=== PATIENT | female | born 1930 | race Caucasian/White ===

== ENCOUNTER 2017-06-15 13:00 | Inpatient (IN) | payer BC ==
--- NOTE | 2017-06-15 13:15 | PDOC ---
History of Present Illness <Rox Carrera - Last Filed: 06/15/17 15:03> - General History Source: Family Exam Limitations: Dementia - History of Present Illness Initial Comments: 87 yo F history dementia, HTN brought in by son for cough. He states she has had the cough for past 2 days, nonproductive. She has had decreased PO intake, so he has been giving her pedialyte for hydration. Decreased solid food intake as well. No recent travel, no sick contacts. History limited, as patient has dementia and states that she does not know why she is in the ED today. <Chante Wang - Last Filed: 06/15/17 15:37> - General Chief Complaint: Respiratory Stated Complaint: COUGH Time Seen by Provider: 06/15/17 13:09 Past History <Rox Carrera - Last Filed: 06/15/17 15:03> - Past Medical History COPD: No Dementia: Yes GI Disorders: Yes (diverticulitis) HTN: Yes - Suicide/Smoking/Psychosocial Hx Smoking History: Never smoked Have you smoked in the past 12 months: No Hx Alcohol Use: No Drug/Substance Use Hx: No Substance Use Type: None <Chante Wang - Last Filed: 06/15/17 15:37> - Past Medical History Allergies/Adverse Reactions: Allergies Allergy/AdvReac Type Severity Reaction Status Date / Time No Known Allergies Allergy Verified 06/15/17 13:04 Home Medications: Ambulatory Orders Lisinopril/Hydrochlorothiazide [Lisinopril-Hctz 10-12.5 mg Tab] 1 each PO DAILY 03/27/15 Donepezil HCl [Aricept] 10 mg PO DAILY #30 tablet 04/02/15 Lisinopril 10 mg PO DAILY #30 tablet 04/02/15 Furosemide [Lasix -] 20 mg PO DAILY #30 tablet 04/03/15 Review of Systems - Review of Systems Able to Perform ROS?: No (dementia) <Chante Wang - Last Filed: 06/15/17 15:37> *Physical Exam - Vital Signs Last Vital Signs Temp Pulse Resp BP Pulse Ox 100 F H 106 H 18 124/69 97 06/15/17 13:00 06/15/17 14:31 06/15/17 14:31 06/15/17 14:31 06/15/17 14:31 <Rox Carrera - Last Filed: 06/15/17 15:03> - Vital Signs Last Vital Signs Temp Pulse Resp BP Pulse Ox 100 F H 122 H 20 163/92 96 06/15/17 13:00 06/15/17 13:00 06/15/17 13:00 06/15/17 13:00 06/15/17 13:00 - Physical Exam Comments: GENERAL: Awake, alert, and oriented to person. In no acute distress HEAD: No signs of trauma EYES: PERRLA, EOMI, sclera anicteric, conjunctiva clear ENT: Auricles normal inspection, hearing grossly normal, nares patent, oropharynx clear without exudates. Moist mucosa NECK: Normal ROM, supple, no lymphadenopathy, JVD, or masses LUNGS: Breath sounds equal, clear to auscultation bilaterally. No wheezes, and no crackles. Intermittent dry cough. HEART: Regular rate and rhythm, normal S1 and S2, no murmurs, rubs or gallops ABDOMEN: Soft, nontender, normoactive bowel sounds. No guarding, no rebound. No masses EXTREMITIES: Normal range of motion, no edema. No clubbing or cyanosis. No cords, erythema, or tenderness NEUROLOGICAL: Cranial nerves II through XII grossly intact. Normal speech. Moving all extremities. SKIN: Warm, Dry, normal turgor, no rashes or lesions noted. <Cahnte Wang - Last Filed: 06/15/17 15:37> ED Treatment Course - LABORATORY CBC & Chemistry Diagram: 06/15/17 13:30 06/15/17 13:30 - ADDITIONAL ORDERS Additional order review: Laboratory Results 06/15/17 06/15/17 06/15/17 13:30 13:30 13:30 Sodium 126 L Potassium 4.1 Chloride 94 L Carbon Dioxide 23 Anion Gap 9 BUN 15 D Creatinine 0.7 Creat Clearance w eGFR > 60 Random Glucose 109 H Lactic Acid 0.9 Calcium 8.7 Total Bilirubin 0.7 D AST 22 ALT 10 D Alkaline Phosphatase 84 D Total Protein 7.0 D Albumin 3.5 D Urine Color Yellow Urine Appearance Clear Urine pH 7.0 Ur Specific [place] 1.020 Urine Protein 2+ H Urine Glucose (UA) Negative Urine Ketones Negative Urine Blood 1+ H Urine Nitrite Negative Urine Bilirubin Negative Urine Urobilinogen 0.2 Ur Leukocyte Esterase Negative Urine RBC 3-5 Urine WBC 0-3 Ur Epithelial Cells Moderate Urine Bacteria Moderate 06/15/17 13:30 RBC 4.13 MCV 78.0 L MCHC 33.5 RDW 15.7 H D MPV 7.4 L Neutrophils % 84.9 H Lymphocytes % 5.5 L D Monocytes % 4.8 Eosinophils % 0.4 Basophils % 4.4 H D - Medications Given in the ED: ED Medications Discontinued Medications Generic Name Dose Route Start Last Admin Trade Name Erin PRN Reason Stop Dose Admin Acetaminophen 650 mg 06/15/17 13:22 06/15/17 13:50 Tylenol - PO 06/15/17 13:23 650 mg ONCE ONE Administration Ceftriaxone Sodium 1 gm/ 50 mls @ 100 mls/hr 06/15/17 14:02 06/15/17 14:10 Dextrose IVPB 06/15/17 14:31 100 mls/hr ONCE ONE Administration <Rox Carrera - Last Filed: 06/15/17 15:03> - LABORATORY CBC & Chemistry Diagram: 06/15/17 13:30 06/15/17 13:30 <Chante Wang - Last Filed: 06/15/17 15:37> Medical Decision Making - Medical Decision Making 06/15/17 15:[address] Breann Montgomery's answering service, awaiting call back. <Rox Carrera - Last Filed: 06/15/17 15:03> - Medical Decision Making 06/15/17 15:[address] Eyad Montgomery. Does not admit at [place], requested hospitalist for admission. Discussed with hospitalist [employer], will admit to med/ surg for pneumonia. Of note, patient previously had hyponatremia with pna in 2014, antigens were negative at that time. Urine antigens pending today. <Chante Wang - Last Filed: 06/15/17 15:37> *DC/Admit/Observation/Transfer - Attestations Scribe Attestion: 06/15/17 15:04 Documentation prepared by Rox Carrera, acting as medical investigator for Chante Wang MD. <Rox Carrera - Last Filed: 06/15/17 15:03> - Discharge Dispostion Admit: Yes <Chante Wagn - Last Filed: 06/15/17 15:37> Diagnosis at time of Disposition: Community acquired pneumonia Qualifiers: Laterality: right Lung location: lower lobe of lung Qualified Code(s): J18.1 - Lobar pneumonia, unspecified organism - Discharge Dispostion Condition at time of disposition: Stable - Referrals Referrals: Breann Montgomery [Primary Care Provider] - - Patient Instructions - Post Discharge Activity
[2017-06-15] MEDS ORDERED: ACETAMINOPHEN 325 MG TABLET (FP) PO ONE (13:22)
[2017-06-15] MEDS ORDERED: ACETAMINOPHEN 325 MG TABLET (FP) ONE (13:46)
[2017-06-15 13:49] LABS: BASOPHIL 4.4 % (0-2.0); EOSINOPHIL 0.4 % (0-4.5); MCH 26.1 pg (25.7-33.7); MCHC 33.5 g/dl (32.0-36.0); MEAN PLT VOLUME 7.4 fl (7.5-11.1); NEUTROPHILS 84.9 % (42.8-82.8); PLATELET COUNT 390 K/MM3 (134-434); RDW 15.7 % (11.6-15.6); WHITE BLOOD COUNT 11.7 K/mm3 (4.0-10.8)
[2017-06-15 13:59] LABS: ALBUMIN 3.5 g/dl (3.5-5.0); ALK PHOS 84 U/L (32-92); ANION GAP 9 (8-16); BILIRUBIN,TOTAL 0.7 mg/dl (0.2-1.0); CALCIUM 8.7 mg/dl (8.4-10.2); CO2 23 mmol/L (22-28); CREATININE 0.7 mg/dl (0.6-1.3); GLUCOSE,RANDOM 109 mg/dl (74-106); SGOT/AST 22 U/L (10-42); SGPT/ALT 10 U/L (10-40)
[2017-06-15 14:00] LABS: URINE APPEARANCE Clear; URINE BILIRUBIN Negative (NEGATIVE); URINE GLUCOSE (UA) Negative (NEGATIVE); URINE KETONE Negative (NEGATIVE); URINE LEUK ESTERASE Negative (NEGATIVE); URINE NITRITE Negative (NEGATIVE); URINE UROBILINOGEN 0.2 (0.2-1.0)
[2017-06-15 14:01] LABS: URINE BLOOD 1+ (NEGATIVE); URINE COLOR YELLOW; URINE PROTEIN 2+ (NEGATIVE)
[2017-06-15] MEDS ORDERED: CEFTRIAXONE 1 GM in DEXTROSE 5%-WATER - 50 ML IVPB ONE (14:02)
[2017-06-15] MEDS ORDERED: AZITHROMYCIN IVPB 500 MG in DEXTROSE 5%-WATER - 250 ML IVPB ONE (14:02)
[2017-06-15] MEDS ORDERED: cefTRIAXone SODIUM 1 GM VIAL ONE (14:04)
[2017-06-15] MEDS ORDERED: AZITHROMYCIN 500 MG VIAL IVPB ONE (14:04)
[2017-06-15 14:08] LABS: URINE WBC 0-3 (0-5)
[2017-06-15 14:09] LABS: URINE BACTERIA MODERATE /hpf (NEGATIVE)
[2017-06-15 17:13] VITALS: BMI 21.6
--- NOTE | 2017-06-15 17:44 | EKG ---
Test Reason : Blood Pressure : / mmHG Vent. Rate : 103 BPM Atrial Rate : 103 BPM P-R Int : 136 ms QRS Dur : 074 ms QT Int : 338 ms P-R-T Axes : 063 -07 062 degrees QTc Int : 442 ms SINUS TACHYCARDIA POSSIBLE LEFT ATRIAL ENLARGEMENT LEFT VENTRICULAR HYPERTROPHY ABNORMAL ECG WHEN COMPARED WITH ECG OF 30-AUG-2002 09:50, VENT. RATE HAS INCREASED BY 37 BPM Confirmed by DAVID PEREZ, LIZET ([id number]) on 06/15/2017 5:43:53 PM Referred By: MADAN OMALLEY Confirmed By:LIZET HERNANDEZ MD
--- NOTE | 2017-06-15 19:30 | HP ---
CHIEF COMPLAINT: PCP: Dr. Breann Montgomery HISTORY OF PRESENT ILLNESS: This is a 87 y/o woman with a past medical history of Dementia, HTN. ER course was notable for: (1) Chest Xray- RLL infiltrate (2) WBC 11.7 (3) Na 126 Recent Travel: None PAST MEDICAL HISTORY: Dementia HTN PAST SURGICAL HISTORY: Social History: Smoking: Never Alcohol: None Drugs: None Family History: Non-contributory Allergies No Known Allergies Allergy (Verified 06/15/17 13:04) HOME MEDICATIONS: Home Medications Medication Instructions Recorded Donepezil HCl [Aricept] 10 mg PO DAILY #30 tablet 04/02/15 Furosemide [Lasix -] 20 mg PO DAILY #30 tablet 04/03/15 Amlodipine Besylate 5 mg PO DAILY 06/15/17 Lisinopril [Prinivil] 10 mg PO DAILY 06/15/17 REVIEW OF SYSTEMS Unable to obtain- Dementia CONSTITUTIONAL: Absent: fever, chills, diaphoresis, generalized weakness, malaise, loss of appetite, weight change HEENT: Absent: rhinorrhea, nasal congestion, throat pain, throat swelling, difficulty swallowing, mouth swelling, ear pain, eye pain, visual changes CARDIOVASCULAR: Absent: chest pain, syncope, palpitations, irregular heart rate, lightheadedness , peripheral edema RESPIRATORY: Absent: cough, shortness of breath, dyspnea with exertion, orthopnea, wheezing, stridor, hemoptysis GASTROINTESTINAL: Absent: abdominal pain, abdominal distension, nausea, vomiting, diarrhea, constipation, melena, hematochezia GENITOURINARY: Absent: dysuria, frequency, urgency, hesitancy, hematuria, flank pain, genital pain MUSCULOSKELETAL: Absent: myalgia, arthralgia, joint swelling, back pain, neck pain SKIN: Absent: rash, itching, pallor HEMATOLOGIC/IMMUNOLOGIC: Absent: easy bleeding, easy bruising, lymphadenopathy, frequent infections ENDOCRINE: Absent: unexplained weight gain, unexplained weight loss, heat intolerance, cold intolerance NEUROLOGIC: Absent: headache, focal weakness or paresthesias, dizziness, unsteady gait, seizure, mental status changes, bladder or bowel incontinence PSYCHIATRIC: Absent: anxiety, depression, suicidal or homicidal ideation, hallucinations. PHYSICAL EXAMINATION Vital Signs - 24 hr 06/15/17 06/15/17 06/15/17 13:00 14:31 16:13 Temperature 100 F H 99.3 F 98.8 F Pulse Rate 122 H Pulse Rate [ 106 H 97 H Left Apical] Respiratory 20 18 16 Rate Blood Pressure 163/92 Blood Pressure 124/69 129/68 [Right Arm] O2 Sat by Pulse 96 97 97 Oximetry (%) 06/15/17 17:06 Temperature 98.4 F Pulse Rate 95 H Pulse Rate [ Left Apical] Respiratory 18 Rate Blood Pressure 156/60 Blood Pressure [Right Arm] O2 Sat by Pulse 97 Oximetry (%) GENERAL: Awake, alert, at baseline in no acute distress. HEAD: Normal with no signs of trauma. EYES: Pupils equal, round and reactive to light, extraocular movements intact, sclera anicteric, conjunctiva clear. No lid lag. EARS, NOSE, THROAT: Ears normal, nares patent, oropharynx clear without exudates. Dry mucous membranes. NECK: Normal range of motion, supple without lymphadenopathy, JVD, or masses. LUNGS: Breath sounds diminished at bases. No wheezes, and no crackles. No accessory muscle use. HEART: Regular rate and rhythm, normal S1 and S2 without murmur, rub or gallop. ABDOMEN: Soft, nontender, not distended, normoactive bowel sounds, no guarding, no rebound, no masses. No hepatomegaly or splenomegaly. MUSCULOSKELETAL: Normal range of motion at all joints. No bony deformities or tenderness. No CVA tenderness. UPPER EXTREMITIES: 2+ pulses, warm, well-perfused. No cyanosis. No clubbing. No peripheral edema. LOWER EXTREMITIES: 2+ pulses, warm, well-perfused. No calf tenderness. No peripheral edema. NEUROLOGICAL: Cranial nerves II-XII intact. Normal speech. Gait not observed. PSYCHIATRIC: Dementia at baseline. SKIN: Warm, dry, normal turgor, no rashes or lesions noted, normal capillary refill. Laboratory Results - last 24 hr 06/15/17 06/15/17 06/15/17 13:30 13:30 13:30 WBC 11.7 H RBC 4.13 Hgb 10.8 Hct 32.2 L MCV 78.0 L MCH 26.1 MCHC 33.5 RDW 15.7 H D Plt Count 390 MPV 7.4 L Neutrophils % 84.9 H Lymphocytes % 5.5 L D Monocytes % 4.8 Eosinophils % 0.4 Basophils % 4.4 H D Sodium 126 L Potassium 4.1 Chloride 94 L Carbon Dioxide 23 Anion Gap 9 BUN 15 D Creatinine 0.7 Creat Clearance w eGFR > 60 Random Glucose 109 H Lactic Acid Calcium 8.7 Total Bilirubin 0.7 D AST 22 ALT 10 D Alkaline Phosphatase 84 D Total Protein 7.0 D Albumin 3.5 D Urine Color Yellow Urine Appearance Clear Urine pH 7.0 Ur Specific [place] 1.020 Urine Protein 2+ H Urine Glucose (UA) Negative Urine Ketones Negative Urine Blood 1+ H Urine Nitrite Negative Urine Bilirubin Negative Urine Urobilinogen 0.2 Ur Leukocyte Esterase Negative Urine RBC 3-5 Urine WBC 0-3 Ur Epithelial Cells Moderate Urine Bacteria Moderate 06/15/17 13:30 WBC RBC Hgb Hct MCV MCH MCHC RDW Plt Count MPV Neutrophils % Lymphocytes % Monocytes % Eosinophils % Basophils % Sodium Potassium Chloride Carbon Dioxide Anion Gap BUN Creatinine Creat Clearance w eGFR Random Glucose Lactic Acid 0.9 Calcium Total Bilirubin AST ALT Alkaline Phosphatase Total Protein Albumin Urine Color Urine Appearance Urine pH Ur Specific [place] Urine Protein Urine Glucose (UA) Urine Ketones Urine Blood Urine Nitrite Urine Bilirubin Urine Urobilinogen Ur Leukocyte Esterase Urine RBC Urine WBC Ur Epithelial Cells Urine Bacteria ASSESSMENT/PLAN: This is a 87 y/o female with a PMHx of: Dementia, HTN. Admitted to M/S RLL Pneumonia, Acute Hyponatremia for further evaluation of their emergent condition. Plan: FEN - NS@42cc/hr - BMP@4hr- monitor Na - Low Na Diet Code Status: Full Code Dispo: Requires Inpatient Care Problem List - Problem (1) Community acquired pneumonia Assessment/Plan: - CURB65 Score- 2 - Chest Xray- RLL Infiltrate - + Leukocytosis, Neutrophilia, T Max 100.0 - Azithromycin/Ceftriaxone given in ED, will continue - Blood Cultures-pending - Urine Legionella- pending - Rapid Influenza- negative - Repeat CBC, BMP in am - Monitor vitals - Consider ID if no improvement Code(s): J18.9 - PNEUMONIA, UNSPECIFIED ORGANISM Qualifiers: Laterality: right Lung location: lower lobe of lung Qualified Code(s): J18.1 - Lobar pneumonia, unspecified organism (2) Acute hyponatremia Assessment/Plan: - Likely secondary to diuretic use - BMP Q6h - Hold Lasix - Gentle IVF Code(s): E87.1 - HYPO-OSMOLALITY AND HYPONATREMIA (3) HTN (hypertension) Assessment/Plan: - Controlled - Monitor BP - Continue Lisinopril, Norvasc - Monitor renal function Code(s): I10 - ESSENTIAL (PRIMARY) HYPERTENSION (4) Dementia Assessment/Plan: - Continue home meds - Fall precautions Code(s): F03.90 - UNSPECIFIED DEMENTIA WITHOUT BEHAVIORAL DISTURBANCE (5) DVT prophylaxis Assessment/Plan: - OOB - SCDs - Heparin SQ Code(s): UYG5766 - Visit type - Emergency Visit Emergency Visit: Yes ED Registration Date: 06/15/17 Care time: The patient presented to the Emergency Department on the above date and was hospitalized for further evaluation of their emergent condition. - New Patient This patient is new to me today: Yes Date on this admission: 06/15/17 - Critical Care Critical Care patient: No
[2017-06-15] MEDS ORDERED: SODIUM CHLORIDE 100 ML IV STA (19:58)
[2017-06-15] MEDS: HEPARIN NA (PORCINE) 5,000 UNITS/ML 1ML VIAL SQ SCH (21:33)
[2017-06-16 01:24] LABS: ANION GAP 11 (8-16); CALCIUM 8.5 mg/dL (8.5-10.1); CO2 25 mmol/L (21-32); CREATININE 0.8 mg/dL (0.55-1.02); GLUCOSE,RANDOM 115 mg/dL (74-106)
[2017-06-16] MEDS: HEPARIN NA (PORCINE) 5,000 UNITS/ML 1ML VIAL SQ SCH ×3 (06:21→21:15)
[2017-06-16] MEDS ORDERED: PT OWN MED DRAWER 7, Y5N ONE ×3 (06:29→11:35)
--- NOTE | 2017-06-16 08:14 | PN ---
Physical Exam: SUBJECTIVE: Patient seen and examined, reports feeling well, does report moist cough OBJECTIVE: patient is a 87 y/o female with a past medical history of htn and dementia. she was admitted from the emergency department for a RLL pna Vital Signs Period Temp Pulse Resp BP Sys/[place] Pulse Ox Last 24 Hr 98.3 F-100 F 59-122 16-20 124-163/60-92 94-97 GENERAL: The patient is awake, alert, and fully oriented, in no acute distress. HEAD: Normal with no signs of trauma. EYES: PERRL, extraocular movements intact, sclera anicteric, conjunctiva clear. No ptosis. ENT: Ears normal, nares patent, oropharynx clear without exudates, moist mucous membranes. NECK: Trachea midline, full range of motion, supple. LUNGS: Breath sounds equal, crackles noted to the righl lower lobe, moist cough noted, no wheezes, no accessory muscle use. HEART: Regular rate and rhythm, S1, S2 without murmur, rub or gallop. ABDOMEN: Soft, nontender, nondistended, normoactive bowel sounds, no guarding, no rebound, no hepatosplenomegaly, no masses. EXTREMITIES: 2+ pulses, warm, well-perfused, no edema. NEUROLOGICAL: Cranial nerves II through XII grossly intact. Normal speech, gait not observed. PSYCH: Normal mood, normal affect. SKIN: Warm, dry, normal turgor, no rashes or lesions noted Laboratory Results - last 24 hr CBC WBC 10.0 K/mm3 (4.0-10.8) 06/16/17 08:00 RBC 3.95 M/mm3 (3.60-5.2) 06/16/17 08:00 Hgb 10.4 GM/dl (10.7-15.3) L 06/16/17 08:00 Hct 31.0 % (32.4-45.2) L 06/16/17 08:00 MCV 78.6 fl (80-96) L 06/16/17 08:00 MCH 26.2 pg (25.7-33.7) 06/16/17 08:00 MCHC 33.4 g/dl (32.0-36.0) 06/16/17 08:00 RDW 16.1 % (11.6-15.6) H 06/16/17 08:00 Plt Count 339 K/MM3 (134-434) 06/16/17 08:00 MPV 8.1 fl (7.5-11.1) 06/16/17 08:00 Neutrophils % 85.3 % (42.8-82.8) H 06/16/17 08:00 Lymphocytes % 6.9 % (8-40) L D 06/16/17 08:00 Monocytes % 7.0 % (3.8-10.2) 06/16/17 08:00 Eosinophils % 0.3 % (0-4.5) 06/16/17 08:00 Basophils % 0.5 % (0-2.0) 06/16/17 08:00 CMP Sodium 130 mmol/L (136-145) L 06/16/17 08:00 Potassium 3.7 mmol/L (3.5-5.1) 06/16/17 08:00 Chloride 97 mmol/L (98-107) L 06/16/17 08:00 Carbon Dioxide 24 mmol/L (22-28) 06/16/17 08:00 Anion Gap 9 (8-16) 06/16/17 08:00 BUN 12 mg/dl (7-18) 06/16/17 08:00 Creatinine 0.7 mg/dl (0.6-1.3) 06/16/17 08:00 Creat Clearance w eGFR > 60 (>60) 06/15/17 13:30 Random Glucose 97 mg/dl (74-106) 06/16/17 08:00 Lactic Acid 0.9 mmol/L (0.4-2.0) 06/15/17 13:30 Calcium 8.8 mg/dl (8.4-10.2) 06/16/17 08:00 Magnesium 1.8 mg/dL (1.8-2.4) 06/16/17 08:00 Total Bilirubin 0.7 mg/dl (0.2-1.0) D 06/15/17 13:30 AST 22 U/L (10-42) 06/15/17 13:30 ALT 10 U/L (10-40) D 06/15/17 13:30 Alkaline Phosphatase 84 U/L (32-92) D 06/15/17 13:30 Total Protein 7.0 g/dl (6.4-8.3) D 06/15/17 13:30 Albumin 3.5 g/dl (3.5-5.0) D 06/15/17 13:30 Active Medications Generic Name Dose Route Start Last Admin Trade Name Erin PRN Reason Stop Dose Admin Amlodipine Besylate 5 mg 06/16/17 10:00 Norvasc - PO DAILY [facility] Donepezil HCl 10 mg 06/16/17 10:00 Aricept - PO DAILY [facility] Furosemide 20 mg 06/16/17 10:00 Lasix - PO DAILY [facility] Heparin Sodium (Porcine) 5,000 unit 06/15/17 22:00 06/16/17 06:21 Heparin - SQ 5,000 unit TID LUCIA Administration CEFTRIAXONE 1 G/50 ML PREMIX 50 mls @ 100 mls/hr 06/16/17 13:00 Ceftriaxone 1 Gm-D5w Bag IVPB DAILY@1300 LUCIA Azithromycin 250 mls @ 250 mls/hr 06/16/17 14:00 Zithromax 500mg Ivpb (Pre-Docked) IVPB DAILY@1400 [facility] Lisinopril 10 mg 06/16/17 10:00 Prinivil PO DAILY [facility] Microbiology 06/15/17 13:45 Blood - Peripheral Venous Blood Culture - Preliminary NO GROWTH OBTAINED AFTER 24 HOURS, INCUBATION TO CONTINUE FOR 4 DAYS. 06/15/17 13:30 Blood - Peripheral Venous Blood Culture - Preliminary NO GROWTH OBTAINED AFTER 24 HOURS, INCUBATION TO CONTINUE FOR 4 DAYS. 06/15/17 14:25 Urine For Antigen Detection Legionella Antigen - Final, negative 06/15/17 14:25 Urine For Antigen Detection Streptococcus pneumoniae Antigen (M - Final, negative 06/15/17 13:23 Nasopharyngeal Swab Influenza Types A,B Antigen (EROS) - Final , negative 06/15/17 13:23 Nasopharyngeal Swab - Final ASSESSMENT/PLAN: 1) pulm community acquired PNA - chest xray reviewed notable for right lower PNA - leukocytosis resolved low grade temp noted - urine antigens negative - continue rocephin and zithromax - incentive spirometer - start q6h duonebs - keep spo2 above 92% with supplemental O2 2) cardiovascular diastolic chf - euvolemic on exam, hold lasix for now in setting of sepis - strict i/o and daily weight hypertension - continue lisinopril and norvasc - b/p at goal 3) psych dementia - continue aricept continue fall precautions f/e/n hyponatremia - serum sodium 130, continue gentle ivf, repeat bmp in am regular diet replete lytes prn ppx - oob - scd - heparin sq - pt dispo: requires inpatient admission Visit type - Emergency Visit Emergency Visit: Yes ED Registration Date: 06/15/17 Care time: The patient presented to the Emergency Department on the above date and was hospitalized for further evaluation of their emergent condition. - New Patient This patient is new to me today: Yes Date on this admission: 06/16/17 - Critical Care Critical Care patient: No - Discharge Referral Referred to [facility] No
[2017-06-16] MEDS: ACETAMINOPHEN 325 MG TABLET (FP) PO PRN (08:21)
[2017-06-16] MEDS: DONEPEZIL HCL 10 MG TABLET (FP) PO SCH (09:19)
[2017-06-16] MEDS: LISINOPRIL 10 MG TABLET (FP) PO SCH (09:20)
[2017-06-16] MEDS: amLODIPine BESYLATE 5 MG TABLET (FP) PO SCH (09:20)
[2017-06-16 09:26] LABS: BASOPHIL 0.5 % (0-2.0); EOSINOPHIL 0.3 % (0-4.5); MCH 26.2 pg (25.7-33.7); MCHC 33.4 g/dl (32.0-36.0); MEAN CELL VOLUME 78.6 fl (80-96); MEAN PLT VOLUME 8.1 fl (7.5-11.1); NEUTROPHILS 85.3 % (42.8-82.8); PLATELET COUNT 339 K/MM3 (134-434); RDW 16.1 % (11.6-15.6)
[2017-06-16] MEDS: ALBUTEROL SO4 2.5/IPRATROPIUM 0.5 INH SOL 3 ML VIAL.NEB. NEB SCH ×4 (09:29→17:30)
[2017-06-16 09:34] LABS: ANION GAP 9 (8-16); CALCIUM 8.8 mg/dl (8.4-10.2); CO2 24 mmol/L (22-28); CREATININE 0.7 mg/dl (0.6-1.3); GLUCOSE,RANDOM 97 mg/dl (74-106)
[2017-06-16] MEDS: POTASSIUM CHLORIDE TABS 20 MEQ TABLET.ER (FP) PO SCH (10:58)
[2017-06-16] MEDS ORDERED: cefTRIAXone 1 GM/50 ML BAG (PRE-DOCKED) IVPB SCH (13:00)
[2017-06-16] MEDS: CEFTRIAXONE 1 G/50 ML PREMIX 50 ML IVPB SCH (13:12)
[2017-06-16] MEDS ORDERED: AZITHROMYCIN IVPB 500 MG in DEXTROSE 5%-WATER - 250 ML IVPB SCH (14:00)
[2017-06-16] MEDS: AZITHROMYCIN IVPB 250 ML IVPB SCH (14:35)
[2017-06-16] MEDS ORDERED: MAGNESIUM SULF 50% (8.12 MEQ/2 ML-1 GM VIAL) IVPB ONE (16:00)
[2017-06-17] MEDS: HEPARIN NA (PORCINE) 5,000 UNITS/ML 1ML VIAL SQ SCH ×3 (05:02→21:15)
[2017-06-17] MEDS: ALBUTEROL SO4 2.5/IPRATROPIUM 0.5 INH SOL 3 ML VIAL.NEB. NEB SCH ×5 (05:02→23:21)
--- NOTE | 2017-06-17 08:35 | PN ---
Physical Exam: SUBJECTIVE: Patient seen and examined, reports breathing is slightly improved, spiked a fever last night tmax of 103.1 OBJECTIVE:patient is a 87 y/o female with a past medical history of htn and dementia. she was admitted from the emergency department for a RLL pna Vital Signs Period Temp Pulse Resp BP Sys/[place] Pulse Ox Last 24 Hr 98.3 F-103.1 F 53-113 16-20 113-143/53-94 96-100 GENERAL: The patient is awake, alert, and fully oriented, in no acute distress. HEAD: Normal with no signs of trauma. EYES: PERRL, extraocular movements intact, sclera anicteric, conjunctiva clear. No ptosis. ENT: Ears normal, nares patent, oropharynx clear without exudates, moist mucous membranes. NECK: Trachea midline, full range of motion, supple. LUNGS: Breath sounds equal, coursce rhonchi to apexes and crackles to bases, no wheezes, no accessory muscle use. HEART: Regular rate and rhythm, S1, S2 without murmur, rub or gallop. ABDOMEN: Soft, nontender, nondistended, normoactive bowel sounds, no guarding, no rebound, no hepatosplenomegaly, no masses. EXTREMITIES: 2+ pulses, warm, well-perfused, no edema. NEUROLOGICAL: Cranial nerves II through XII grossly intact. Normal speech, gait not observed. PSYCH: Normal mood, normal affect. SKIN: Warm, dry, normal turgor, no rashes or lesions noted Laboratory Results - last 24 hr CBC WBC 8.0 K/mm3 (4.0-10.8) 06/17/17 07:00 RBC 3.65 M/mm3 (3.60-5.2) 06/17/17 07:00 Hgb 9.3 GM/dl (10.7-15.3) L D 06/17/17 07:00 Hct 28.7 % (32.4-45.2) L 06/17/17 07:00 MCV 78.8 fl (80-96) L 06/17/17 07:00 MCH 25.4 pg (25.7-33.7) L 06/17/17 07:00 MCHC 32.2 g/dl (32.0-36.0) 06/17/17 07:00 RDW 16.2 % (11.6-15.6) H 06/17/17 07:00 Plt Count 331 K/MM3 (134-434) 06/17/17 07:00 MPV 8.0 fl (7.5-11.1) 06/17/17 07:00 Neutrophils % 80.3 % (42.8-82.8) 06/17/17 07:00 Lymphocytes % 9.4 % (8-40) D 06/17/17 07:00 Monocytes % 8.5 % (3.8-10.2) 06/17/17 07:00 Eosinophils % 1.3 % (0-4.5) D 06/17/17 07:00 Basophils % 0.5 % (0-2.0) 06/17/17 07:00 Retic Count 1.31 % (0.5-1.5) 06/17/17 07:10 CMP Sodium 134 mmol/L (136-145) L 06/17/17 07:00 Potassium 3.5 mmol/L (3.5-5.1) 06/17/17 07:00 Chloride 102 mmol/L (98-107) 06/17/17 07:00 Carbon Dioxide 22 mmol/L (22-28) 06/17/17 07:00 Anion Gap 10 (8-16) 06/17/17 07:00 BUN 20 mg/dl (7-18) H D 06/17/17 07:00 Creatinine 0.9 mg/dl (0.6-1.3) D 06/17/17 07:00 Creat Clearance w eGFR > 60 (>60) 06/15/17 13:30 Random Glucose 124 mg/dl (74-106) H D 06/17/17 07:00 Lactic Acid 0.9 mmol/L (0.4-2.0) 06/15/17 13:30 Calcium 8.4 mg/dl (8.4-10.2) 06/17/17 07:00 Phosphorus 2.8 mg/dl (2.5-4.6) 06/17/17 07:00 Magnesium 2.0 mg/dL (1.8-2.4) 06/17/17 07:00 Total Bilirubin 0.7 mg/dl (0.2-1.0) D 06/15/17 13:30 AST 22 U/L (10-42) 06/15/17 13:30 ALT 10 U/L (10-40) D 06/15/17 13:30 Alkaline Phosphatase 84 U/L (32-92) D 06/15/17 13:30 Total Protein 7.0 g/dl (6.4-8.3) D 06/15/17 13:30 Albumin 3.5 g/dl (3.5-5.0) D 06/15/17 13:30 Active Medications Generic Name Dose Route Start Last Admin Trade Name Freq PRN Reason Stop Dose Admin Acetaminophen 650 mg 06/16/17 08:13 06/16/17 08:21 Tylenol - PO 650 mg Q4H PRN Administration FEVER OR PAIN Albuterol/Ipratropium 1 amp 06/16/17 09:30 06/17/17 05:02 Duoneb - NEB 1 amp QIDR LUCIA Administration Amlodipine Besylate 5 mg 06/16/17 10:00 06/16/17 09:20 Norvasc - PO 5 mg DAILY LUCIA Administration Donepezil HCl 10 mg 06/16/17 10:00 06/16/17 09:19 Aricept - PO 10 mg DAILY LUCIA Administration Furosemide 20 mg 06/16/17 10:00 Lasix - PO DAILY LUCIA Heparin Sodium (Porcine) 5,000 unit 06/15/17 22:00 06/17/17 05:02 Heparin - SQ 5,000 unit TID LUCIA Administration CEFTRIAXONE 1 G/50 ML PREMIX 50 mls @ 100 mls/hr 06/16/17 13:00 06/16/17 13: 12 Ceftriaxone 1 Gm-D5w Bag IVPB 100 mls/hr DAILY@1300 LUCIA Administration Azithromycin 250 mls @ 250 mls/hr 06/16/17 14:00 06/16/17 14:35 Zithromax 500mg Ivpb (Pre-Docked) IVPB 250 mls/hr DAILY@1400 LUCIA Administration Lisinopril 10 mg 06/16/17 10:00 06/16/17 09:20 Prinivil PO 10 mg DAILY LUCIA Administration Potassium Chloride 20 meq 06/16/17 10:30 06/16/17 10:58 K-Dur - PO 20 meq DAILY LUCIA Administration Microbiology 06/15/17 13:30 Urine - Urine - Catheterized Urine Culture - Final NO GROWTH OBTAINED 06/15/17 13:45 Blood - Peripheral Venous Blood Culture - Preliminary NO GROWTH OBTAINED AFTER 24 HOURS, INCUBATION TO CONTINUE FOR 4 DAYS. 06/15/17 13:30 Blood - Peripheral Venous Blood Culture - Preliminary NO GROWTH OBTAINED AFTER 24 HOURS, INCUBATION TO CONTINUE FOR 4 DAYS. 06/15/17 14:25 Urine For Antigen Detection Legionella Antigen - Final, negative 06/15/17 14:25 Urine For Antigen Detection Streptococcus pneumoniae Antigen (M - Final, negative 06/15/17 13:23 Nasopharyngeal Swab Influenza Types A,B Antigen (EROS) - Final , negative 06/15/17 13:23 Nasopharyngeal Swab - Final IMAGING chest xray (06/16/17) reviewed notable for right lower PNA ASSESSMENT/PLAN: 1) pulm community acquired PNA - tmax of 103.1, no leukocytosis - continue rocephin and zithromax (06/16-) - incentive spirometer - continue duonebs - keep spo2 above 92% with supplemental O2 2) cardiovascular diastolic chf - euvolemic on exam, hold lasix for now in setting of sepsis - strict i/o and daily weight hypertension - continue lisinopril and norvasc - b/p at goal 3) psych dementia - continue aricept continue fall precautions 4) heme microxytic anemia - hgb 9.3 baseline 11.7, no active bleeding noted, pending stool guiac and iron studies - repeat cbc in am f/e/n hyponatremia - serum sodium 134, continue gentle ivf, repeat bmp in am regular diet replete lytes prn ppx - oob - scd - heparin sq - pt dispo: requires inpatient admission Visit type - Emergency Visit Emergency Visit: Yes ED Registration Date: 06/15/17 Care time: The patient presented to the Emergency Department on the above date and was hospitalized for further evaluation of their emergent condition. - New Patient This patient is new to me today: No - Critical Care Critical Care patient: No - Discharge Referral Referred to [facility] Med P.C.: No
[2017-06-17 08:40] LABS: BASOPHIL 0.5 % (0-2.0); EOSINOPHIL 1.3 % (0-4.5); MCH 25.4 pg (25.7-33.7); MCHC 32.2 g/dl (32.0-36.0); MEAN CELL VOLUME 78.8 fl (80-96); NEUTROPHILS 80.3 % (42.8-82.8); PLATELET COUNT 331 K/MM3 (134-434); RDW 16.2 % (11.6-15.6)
[2017-06-17 08:42] LABS: ANION GAP 10 (8-16); CALCIUM 8.4 mg/dl (8.4-10.2); CO2 22 mmol/L (22-28); CREATININE 0.9 mg/dl (0.6-1.3); GLUCOSE,RANDOM 124 mg/dl (74-106); PHOSPHOROUS 2.8 mg/dl (2.5-4.6)
[2017-06-17] MEDS: amLODIPine BESYLATE 5 MG TABLET (FP) PO SCH (09:32)
[2017-06-17] MEDS: DONEPEZIL HCL 10 MG TABLET (FP) PO SCH (09:32)
[2017-06-17] MEDS: LISINOPRIL 10 MG TABLET (FP) PO SCH (09:32)
[2017-06-17] MEDS: POTASSIUM CHLORIDE TABS 20 MEQ TABLET.ER (FP) PO SCH (09:32)
[2017-06-17] MEDS: CEFTRIAXONE 1 G/50 ML PREMIX 50 ML IVPB SCH (13:36)
[2017-06-17] MEDS: AZITHROMYCIN IVPB 250 ML IVPB SCH (13:46)
[2017-06-17] MEDS: D5-NS + 20 MEQ KCL - 20 MEQ/1,000 ML INFUS.BAG IV SCH (14:46)
[2017-06-18] MEDS: guaiFENesin 200 MG/10 ML 10 ML UNIT-DOSE CUPS PO PRN ×3 (01:23→21:25)
[2017-06-18] MEDS: HEPARIN NA (PORCINE) 5,000 UNITS/ML 1ML VIAL SQ SCH ×3 (05:22→21:25)
[2017-06-18] MEDS: ALBUTEROL SO4 2.5/IPRATROPIUM 0.5 INH SOL 3 ML VIAL.NEB. NEB SCH ×4 (05:22→23:58)
--- NOTE | 2017-06-18 07:48 | PN ---
Physical Exam: SUBJECTIVE: Patient seen and examined, patient reports feeling better, denies any chest pain or shortness of breath. OBJECTIVE:patient is a 87 y/o female with a past medical history of htn and dementia. she was admitted from the emergency department for a RLL pna Vital Signs Period Temp Pulse Resp BP Sys/[place] Pulse Ox Last 24 Hr 98 F-99.3 F 58-108 16-19 122-137/61-76 92-97 GENERAL: The patient is awake, alert, and fully oriented, in no acute distress. HEAD: Normal with no signs of trauma. EYES: PERRL, extraocular movements intact, sclera anicteric, conjunctiva clear. No ptosis. ENT: Ears normal, nares patent, oropharynx clear without exudates, moist mucous membranes. NECK: Trachea midline, full range of motion, supple. LUNGS: Breath sounds equal, course rhonchi to apexes, crackles to bases, no wheezes, no accessory muscle use. HEART: Regular rate and rhythm, S1, S2 without murmur, rub or gallop. ABDOMEN: Soft, nontender, nondistended, normoactive bowel sounds, no guarding, no rebound, no hepatosplenomegaly, no masses. EXTREMITIES: 2+ pulses, warm, well-perfused, no edema. NEUROLOGICAL: Cranial nerves II through XII grossly intact. Normal speech, gait not observed. PSYCH: Normal mood, normal affect. SKIN: Warm, dry, normal turgor, no rashes or lesions noted Laboratory Results - last 24 hr CBC WBC 9.3 K/mm3 (4.0-10.8) 06/18/17 07:20 RBC 3.43 M/mm3 (3.60-5.2) L 06/18/17 07:20 Hgb 8.7 GM/dl (10.7-15.3) L 06/18/17 07:20 Hct 26.8 % (32.4-45.2) L 06/18/17 07:20 MCV 78.2 fl (80-96) L 06/18/17 07:20 MCH 25.4 pg (25.7-33.7) L 06/18/17 07:20 MCHC 32.5 g/dl (32.0-36.0) 06/18/17 07:20 RDW 15.9 % (11.6-15.6) H 06/18/17 07:20 Plt Count 321 K/MM3 (134-434) 06/18/17 07:20 MPV 8.2 fl (7.5-11.1) 06/18/17 07:20 Neutrophils % 78.0 % (42.8-82.8) 06/18/17 07:20 Lymphocytes % 9.8 % (8-40) 06/18/17 07:20 Monocytes % 8.6 % (3.8-10.2) 06/18/17 07:20 Eosinophils % 3.2 % (0-4.5) D 06/18/17 07:20 Basophils % 0.4 % (0-2.0) 06/18/17 07:20 Retic Count 1.31 % (0.5-1.5) 06/17/17 07:10 CMP Sodium 127 mmol/L (136-145) L 06/18/17 07:00 Potassium 3.8 mmol/L (3.5-5.1) 06/18/17 07:00 Chloride 97 mmol/L (98-107) L 06/18/17 07:00 Carbon Dioxide 21 mmol/L (22-28) L 06/18/17 07:00 Anion Gap 9 (8-16) 06/18/17 07:00 BUN 17 mg/dl (7-18) 06/18/17 07:00 Creatinine 0.7 mg/dl (0.6-1.3) D 06/18/17 07:00 Creat Clearance w eGFR > 60 (>60) 06/18/17 07:00 Random Glucose 115 mg/dl (74-106) H 06/18/17 07:00 Lactic Acid 0.9 mmol/L (0.4-2.0) 06/15/17 13:30 Calcium 8.3 mg/dl (8.4-10.2) L 06/18/17 07:00 Phosphorus 2.5 mg/dl (2.5-4.6) 06/18/17 07:00 Magnesium 1.8 mg/dL (1.8-2.4) 06/18/17 07:00 Total Bilirubin 0.6 mg/dl (0.2-1.0) 06/18/17 07:00 AST 27 U/L (10-42) D 06/18/17 07:00 ALT 16 U/L (10-40) D 06/18/17 07:00 Alkaline Phosphatase 62 U/L (32-92) D 06/18/17 07:00 Total Protein 5.9 g/dl (6.4-8.3) L 06/18/17 07:00 Albumin 2.9 g/dl (3.5-5.0) L 06/18/17 07:00 Active Medications Generic Name Dose Route Start Last Admin Trade Name Freq PRN Reason Stop Dose Admin Acetaminophen 650 mg 06/16/17 08:13 06/16/17 08:21 Tylenol - PO 650 mg Q4H PRN Administration FEVER OR PAIN Albuterol/Ipratropium 1 amp 06/16/17 09:30 06/18/17 05:22 Duoneb - NEB 1 amp QIDR LUCIA Administration Amlodipine Besylate 5 mg 06/16/17 10:00 06/17/17 09:32 Norvasc - PO 5 mg DAILY LUCIA Administration Donepezil HCl 10 mg 06/16/17 10:00 06/17/17 09:32 Aricept - PO 10 mg DAILY LUCIA Administration Furosemide 20 mg 06/16/17 10:00 Lasix - PO DAILY LUCIA Guaifenesin 10 ml 06/18/17 01:00 06/18/17 05:50 Robitussin - PO 10 ml Q4H PRN Administration COUGH Heparin Sodium (Porcine) 5,000 unit 06/15/17 22:00 06/18/17 05:22 Heparin - SQ 5,000 unit TID LUCIA Administration CEFTRIAXONE 1 G/50 ML PREMIX 50 mls @ 100 mls/hr 06/16/17 13:00 06/17/17 13: 36 Ceftriaxone 1 Gm-D5w Bag IVPB 100 mls/hr DAILY@1300 LUCIA Administration Azithromycin 250 mls @ 250 mls/hr 06/16/17 14:00 06/17/17 13:46 Zithromax 500mg Ivpb (Pre-Docked) IVPB 250 mls/hr DAILY@1400 LUCIA Administration Dextrose/Sodium Chloride 20 meq in 1,000 mls @ 42 mls/hr 06/17/17 14:00 06/17 14:46 Dextrose 5%-Normal Saline+20 Meq Kcl - IV 42 mls/hr ASDIR LUCIA Administration Lisinopril 10 mg 06/16/17 10:00 06/17/17 09:32 Prinivil PO 10 mg DAILY LUCIA Administration Potassium Chloride 20 meq 06/16/17 10:30 06/17/17 09:32 K-Dur - PO 20 meq DAILY LUCIA Administration IMAGING chest xray (06/16/17) reviewed notable for right lower PNA chest xray (06/17/17) little change to right lower lobe pna ASSESSMENT/PLAN: 1) pulm community acquired PNA - patient is afebrile, leukocytosis - continue rocephin and zithromax (06/16-) - incentive spirometer - continue duonebs - keep spo2 above 92% with supplemental O2 2) cardiovascular diastolic chf - euvolemic on exam, hold lasix for now in setting of sepsis - strict i/o and daily weight hypertension - continue lisinopril and norvasc - b/p at goal 3) psych dementia - continue aricept continue fall precautions 4) heme microxytic anemia - hgb 8.7, baseline 11.7, no active bleeding noted, pending stool guiac and iron studies - repeat cbc in am f/e/n hyponatremia - serum sodium 127, continue gentle ivf, repeat bmp in am regular diet replete lytes prn ppx - oob - scd - heparin sq - pt dispo: requires inpatient admission Visit type - Emergency Visit Emergency Visit: Yes ED Registration Date: 06/15/17 Care time: The patient presented to the Emergency Department on the above date and was hospitalized for further evaluation of their emergent condition. - New Patient This patient is new to me today: No - Critical Care Critical Care patient: No - Discharge Referral Referred to [facility] Med P.C.: No
[2017-06-18 08:45] LABS: BASOPHIL 0.4 % (0-2.0); EOSINOPHIL 3.2 % (0-4.5); MCH 25.4 pg (25.7-33.7); MCHC 32.5 g/dl (32.0-36.0); MEAN CELL VOLUME 78.2 fl (80-96); MEAN PLT VOLUME 8.2 fl (7.5-11.1); PLATELET COUNT 321 K/MM3 (134-434); RDW 15.9 % (11.6-15.6); WHITE BLOOD COUNT 9.3 K/mm3 (4.0-10.8)
[2017-06-18 08:47] LABS: ALBUMIN 2.9 g/dl (3.5-5.0); ALK PHOS 62 U/L (32-92); ANION GAP 9 (8-16); BILIRUBIN,TOTAL 0.6 mg/dl (0.2-1.0); CALCIUM 8.3 mg/dl (8.4-10.2); CO2 21 mmol/L (22-28); CREATININE 0.7 mg/dl (0.6-1.3); GLUCOSE,RANDOM 115 mg/dl (74-106); MAGNESIUM 1.8 mg/dL (1.8-2.4); PHOSPHOROUS 2.5 mg/dl (2.5-4.6); SGOT/AST 27 U/L (10-42); SGPT/ALT 16 U/L (10-40); TOT PROT 5.9 g/dl (6.4-8.3)
[2017-06-18] MEDS: LISINOPRIL 10 MG TABLET (FP) PO SCH (09:23)
[2017-06-18] MEDS: POTASSIUM CHLORIDE TABS 20 MEQ TABLET.ER (FP) PO SCH (09:23)
[2017-06-18] MEDS: DONEPEZIL HCL 10 MG TABLET (FP) PO SCH (09:23)
[2017-06-18] MEDS: amLODIPine BESYLATE 5 MG TABLET (FP) PO SCH (09:24)
[2017-06-18] MEDS ORDERED: MAGNESIUM SULF 50% (8.12 MEQ/2 ML-1 GM VIAL) IVPB ONE (12:30)
[2017-06-18] MEDS: FAMOTIDINE 20 MG TABLET PO SCH ×2 (12:54→21:25)
[2017-06-18] MEDS: CEFTRIAXONE 1 G/50 ML PREMIX 50 ML IVPB SCH (13:23)
[2017-06-18] MEDS: AZITHROMYCIN IVPB 250 ML IVPB SCH (14:22)
[2017-06-18] MEDS: D5-NS + 20 MEQ KCL - 20 MEQ/1,000 ML INFUS.BAG IV SCH (14:22)
[2017-06-18] MEDS ORDERED: FUROSEMIDE 40 MG/4 ML INJECTABLE VIAL IVPUSH ONE (16:35)
[2017-06-18 20:38] LABS: ANION GAP 9 (8-16); CALCIUM 8.6 mg/dl (8.4-10.2); CO2 22 mmol/L (22-28); CREATININE 0.9 mg/dl (0.6-1.3); GLUCOSE,RANDOM 114 mg/dl (74-106)
[2017-06-19] MEDS: ALBUTEROL SO4 2.5/IPRATROPIUM 0.5 INH SOL 3 ML VIAL.NEB. NEB SCH ×3 (05:43→17:29)
[2017-06-19] MEDS: HEPARIN NA (PORCINE) 5,000 UNITS/ML 1ML VIAL SQ SCH ×3 (05:43→21:31)
[2017-06-19 08:08] LABS: SERUM IRON 13 ug/dL (27-139); TOTAL IRON BINDING CAPACITY 271 ug/dL (250-450); UIBC 258 ug/dL (118-369)
[2017-06-19 08:30] LABS: BASOPHIL 0.3 % (0-2.0); EOSINOPHIL 6.2 % (0-4.5); MCH 26.2 pg (25.7-33.7); MCHC 33.7 g/dl (32.0-36.0); MEAN CELL VOLUME 77.8 fl (80-96); MEAN PLT VOLUME 7.9 fl (7.5-11.1); NEUTROPHILS 74.7 % (42.8-82.8); PLATELET COUNT 398 K/MM3 (134-434); WHITE BLOOD COUNT 9.5 K/mm3 (4.0-10.8)
[2017-06-19 08:34] LABS: ANION GAP 8 (8-16); CALCIUM 8.7 mg/dl (8.4-10.2); CO2 24 mmol/L (22-28); CREATININE 0.8 mg/dl (0.6-1.3); GLUCOSE,RANDOM 97 mg/dl (74-106); MAGNESIUM 1.8 mg/dL (1.8-2.4); PHOSPHOROUS 3.7 mg/dl (2.5-4.6)
[2017-06-19] MEDS ORDERED: FUROSEMIDE 40 MG/4 ML INJECTABLE VIAL IVPUSH ONE (09:15)
[2017-06-19] MEDS: LISINOPRIL 10 MG TABLET (FP) PO SCH (09:25)
[2017-06-19] MEDS: POTASSIUM CHLORIDE TABS 20 MEQ TABLET.ER (FP) PO SCH (09:25)
[2017-06-19] MEDS: amLODIPine BESYLATE 5 MG TABLET (FP) PO SCH (09:25)
[2017-06-19] MEDS: FAMOTIDINE 20 MG TABLET PO SCH ×2 (09:25→21:31)
[2017-06-19] MEDS: guaiFENesin 200 MG/10 ML 10 ML UNIT-DOSE CUPS PO PRN (09:25)
[2017-06-19] MEDS: DONEPEZIL HCL 10 MG TABLET (FP) PO SCH (09:25)
[2017-06-19] MEDS: FUROSEMIDE 20 MG TABLET (FP) PO SCH (09:43)
--- NOTE | 2017-06-19 13:03 | PN ---
Physical Exam: SUBJECTIVE: Patient seen and examined, reports feeling better, does report moist cough OBJECTIVE:patient is a 87 y/o female with a past medical history of htn and dementia. she was admitted from the emergency department for a RLL pna Vital Signs Period Temp Pulse Resp BP Sys/[place] Pulse Ox Last 24 Hr 98.0 F-98.9 F 100-107 16-20 116-159/60-88 93-97 GENERAL: The patient is awake, alert, and fully oriented, in no acute distress. HEAD: Normal with no signs of trauma. EYES: PERRL, extraocular movements intact, sclera anicteric, conjunctiva clear. No ptosis. ENT: Ears normal, nares patent, oropharynx clear without exudates, moist mucous membranes. NECK: Trachea midline, full range of motion, supple. LUNGS: Breath sounds equal, crackles noted to the right lower lobe, clear to bilateral apexes, no wheezes, no crackles, no accessory muscle use. HEART: Regular rate and rhythm, S1, S2 without murmur, rub or gallop. ABDOMEN: Soft, nontender, nondistended, normoactive bowel sounds, no guarding, no rebound, no hepatosplenomegaly, no masses. EXTREMITIES: 2+ pulses, warm, well-perfused, no edema. NEUROLOGICAL: Cranial nerves II through XII grossly intact. Normal speech, gait not observed. PSYCH: Normal mood, normal affect. SKIN: Warm, dry, normal turgor, no rashes or lesions noted Laboratory Results - last 24 hr 06/17/17 06/17/17 06/18/17 07:10 07:10 13:15 WBC RBC Hgb Hct MCV MCH MCHC RDW Plt Count MPV Neutrophils % Lymphocytes % Monocytes % Eosinophils % Basophils % Sodium Potassium Chloride Carbon Dioxide Anion Gap BUN Creatinine Random Glucose Calcium Phosphorus Magnesium Iron 13 L TIBC 271 Iron Saturation 5 L Ferritin 381.459 H Stool Occult Blood Negative 06/18/17 06/19/17 06/19/17 20:00 07:00 07:00 WBC 9.5 RBC 3.73 Hgb 9.8 L D Hct 29.0 L MCV 77.8 L MCH 26.2 MCHC 33.7 RDW 16.0 H Plt Count 398 D MPV 7.9 Neutrophils % 74.7 Lymphocytes % 11.4 Monocytes % 7.4 Eosinophils % 6.2 H D Basophils % 0.3 Sodium 126 L 129 L Potassium 4.0 4.0 Chloride 95 L 97 L Carbon Dioxide 22 24 Anion Gap 9 8 BUN 14 12 Creatinine 0.9 D 0.8 Random Glucose 114 H 97 Calcium 8.6 8.7 Phosphorus 3.7 D Magnesium 1.8 Iron TIBC Iron Saturation Ferritin Stool Occult Blood Active Medications Generic Name Dose Route Start Last Admin Trade Name Freq PRN Reason Stop Dose Admin Acetaminophen 650 mg 06/16/17 08:13 06/16/17 08:21 Tylenol - PO 650 mg Q4H PRN Administration FEVER OR PAIN Albuterol/Ipratropium 1 amp 06/16/17 09:30 06/19/17 05:43 Duoneb - NEB 1 amp QIDR LUCIA Administration Amlodipine Besylate 5 mg 06/16/17 10:00 06/19/17 09:25 Norvasc - PO 5 mg DAILY LUCIA Administration Donepezil HCl 10 mg 06/16/17 10:00 06/19/17 09:25 Aricept - PO 10 mg DAILY LUCIA Administration Famotidine 20 mg 06/18/17 12:00 06/19/17 09:25 Pepcid - PO 20 mg BID LUCIA Administration Furosemide 20 mg 06/16/17 10:00 06/19/17 09:43 Lasix - PO 20 mg DAILY LUCIA Administration Guaifenesin 10 ml 06/18/17 01:00 06/19/17 09:25 Robitussin - PO 10 ml Q4H PRN Administration COUGH Heparin Sodium (Porcine) 5,000 unit 06/15/17 22:00 06/19/17 05:43 Heparin - SQ 5,000 unit TID LUCIA Administration CEFTRIAXONE 1 G/50 ML PREMIX 50 mls @ 100 mls/hr 06/16/17 13:00 06/18/17 13: 23 Ceftriaxone 1 Gm-D5w Bag IVPB 100 mls/hr DAILY@1300 LUCIA Administration Azithromycin 250 mls @ 250 mls/hr 06/16/17 14:00 06/18/17 14:22 Zithromax 500mg Ivpb (Pre-Docked) IVPB 250 mls/hr DAILY@1400 LUCIA Administration Lisinopril 10 mg 06/16/17 10:00 06/19/17 09:25 Prinivil PO 10 mg DAILY LUCIA Administration Potassium Chloride 20 meq 06/16/17 10:30 06/19/17 09:25 K-Dur - PO 20 meq DAILY LUCIA Administration Microbiology 06/15/17 13:45 Blood - Peripheral Venous Blood Culture - Preliminary NO GROWTH OBTAINED AFTER 72 HOURS, INCUBATION TO CONTINUE FOR 2 DAYS. 06/15/17 13:30 Blood - Peripheral Venous Blood Culture - Preliminary NO GROWTH OBTAINED AFTER 72 HOURS, INCUBATION TO CONTINUE FOR 2 DAYS. 06/15/17 13:30 Urine - Urine - Catheterized Urine Culture - Final NO GROWTH OBTAINED 06/15/17 14:25 Urine For Antigen Detection Legionella Antigen - Final, negative 06/15/17 14:25 Urine For Antigen Detection Streptococcus pneumoniae Antigen (M - Final, negative 06/15/17 13:23 Nasopharyngeal Swab Influenza Types A,B Antigen (EROS) - Final , negative 06/15/17 13:23 Nasopharyngeal Swab - Final IMAGING chest xray (06/16/17) reviewed notable for right lower PNA chest xray (06/17/17) little change to right lower lobe pna chest xray (06/19/17) improvement to right lower lobe infilitrate, small left pleural effusion ASSESSMENT/PLAN: 1) pulm community acquired PNA - patient is afebrile, no leukocytosis - continue rocephin and zithromax (06/16-) - incentive spirometer - continue duonebs - pre and post oxygen, spo2 98% after flat surface walking, 2) cardiovascular diastolic chf - trace edema noted to bilateral lower extremities, lasix 20mg iv x1, and restart home dose lasix - strict i/o and daily weight hypertension - continue lisinopril and norvasc - b/p at goal 3) psych dementia - continue aricept continue fall precautions 4) heme microxytic anemia - hgb 9.7, baseline 11.7, no active bleeding noted, stool guiac negative, iron studies noted, start iron supplements - repeat cbc in am f/e/n hyponatremia - serum sodium 129, slowly trending upward, secondary to fluid overload, repeat bmp in am regular diet replete lytes prn ppx - oob - scd - heparin sq - pt dispo: requires inpatient admission Visit type - Emergency Visit Emergency Visit: Yes ED Registration Date: 06/15/17 Care time: The patient presented to the Emergency Department on the above date and was hospitalized for further evaluation of their emergent condition. - New Patient This patient is new to me today: No - Critical Care Critical Care patient: No - Discharge Referral Referred to [facility] Med P.C.: No
[2017-06-19] MEDS: CEFTRIAXONE 1 G/50 ML PREMIX 50 ML IVPB SCH (13:38)
[2017-06-19] MEDS: MULTIVITAMINS (DAILY MVI) TABLET (FP) PO SCH (13:39)
[2017-06-19] MEDS: LACTOBACILLUS ACIDOPHILUS 1 EACH TAB (FP) PO SCH (13:39)
[2017-06-19] MEDS: FERROUS SO4 325 MG TABLET (FP) PO SCH (13:39)
[2017-06-19] MEDS: AZITHROMYCIN IVPB 250 ML IVPB SCH (13:50)
[2017-06-19 16:43] LABS: ANION GAP 10 (8-16); CALCIUM 8.5 mg/dl (8.4-10.2); CO2 21 mmol/L (22-28); GLUCOSE,RANDOM 165 mg/dl (74-106)
[2017-06-19] MEDS: ACETAMINOPHEN 325 MG TABLET (FP) PO PRN (21:31)
[2017-06-20] MEDS: ALBUTEROL SO4 2.5/IPRATROPIUM 0.5 INH SOL 3 ML VIAL.NEB. NEB SCH ×3 (00:30→12:30)
[2017-06-20] MEDS: HEPARIN NA (PORCINE) 5,000 UNITS/ML 1ML VIAL SQ SCH (05:41)
[2017-06-20 08:21] LABS: BASOPHIL 0.5 % (0-2.0); EOSINOPHIL 7.9 % (0-4.5); MCH 25.5 pg (25.7-33.7); MCHC 32.5 g/dl (32.0-36.0); MEAN CELL VOLUME 78.6 fl (80-96); MEAN PLT VOLUME 7.8 fl (7.5-11.1); NEUTROPHILS 72.1 % (42.8-82.8); PLATELET COUNT 449 K/MM3 (134-434); RDW 16.2 % (11.6-15.6); WHITE BLOOD COUNT 9.7 K/mm3 (4.0-10.8)
[2017-06-20 08:40] LABS: ANION GAP 12 (8-16); CALCIUM 8.7 mg/dl (8.4-10.2); CO2 23 mmol/L (22-28); GLUCOSE,RANDOM 104 mg/dl (74-106); MAGNESIUM 1.9 mg/dL (1.8-2.4); PHOSPHOROUS 3.9 mg/dl (2.5-4.6)
[2017-06-20] MEDS: FERROUS SO4 325 MG TABLET (FP) PO SCH (09:11)
[2017-06-20] MEDS: MULTIVITAMINS (DAILY MVI) TABLET (FP) PO SCH (09:11)
[2017-06-20] MEDS: LISINOPRIL 10 MG TABLET (FP) PO SCH (09:11)
[2017-06-20] MEDS: amLODIPine BESYLATE 5 MG TABLET (FP) PO SCH (09:11)
[2017-06-20] MEDS: FUROSEMIDE 20 MG TABLET (FP) PO SCH (09:11)
[2017-06-20] MEDS: FAMOTIDINE 20 MG TABLET PO SCH (09:11)
[2017-06-20] MEDS: POTASSIUM CHLORIDE TABS 20 MEQ TABLET.ER (FP) PO SCH (09:11)
[2017-06-20] MEDS: LACTOBACILLUS ACIDOPHILUS 1 EACH TAB (FP) PO SCH (09:11)
[2017-06-20] MEDS: DONEPEZIL HCL 10 MG TABLET (FP) PO SCH (09:11)
[2017-06-20 09:25] VITALS: BP 114/65; PULSE 70; TEMP 98
[2017-06-20] MEDS ORDERED: AZITHROMYCIN IVPB 250 ML IVPB ONE (10:00)
[2017-06-20] MEDS ORDERED: CEFTRIAXONE 1 G/50 ML PREMIX 50 ML IVPB ONE (11:00)
--- NOTE | 2017-06-20 12:27 | DS ---
Physical Exam: SUBJECTIVE: Patient seen and examined, reports feeling OBJECTIVE: patient is a 87 y/o woman with a past medical history of Dementia, HTN, diastolic congestive heart failure. Patient reports ongoing cough and shortness of breath accompanied by generalized for the past week, as result, she sought evaluation in the emergency department. ER course was notable for: (1) Chest Xray- RLL infiltrate (2) WBC 11.7 (3) Na 126 Vital Signs Period Temp Pulse Resp BP Sys/[place] Pulse Ox Last 24 Hr 97.8 F-99.1 F 70-114 18-20 107-138/54-66 94-96 PHYSICAL EXAM GENERAL: The patient is awake, alert, and oriented times person, in no acute distress. HEAD: Normal with no signs of trauma. EYES: PERRL, extraocular movements intact, sclera anicteric, conjunctiva clear. ENT: Ears normal, nares patent, oropharynx clear without exudates, moist mucous membranes. NECK: Trachea midline, full range of motion, supple. LUNGS: Breath sounds equal, clear to auscultation bilaterally, no wheezes, slight crackles to right lower lobe , no accessory muscle use. HEART: Regular rate and rhythm, S1, S2 without murmur, rub or gallop. ABDOMEN: Soft, nontender, nondistended, normoactive bowel sounds, no guarding, no rebound, no hepatosplenomegaly, no masses. EXTREMITIES: 2+ pulses, warm, well-perfused, no edema. NEUROLOGICAL: Cranial nerves II through XII grossly intact. Normal speech, gait not observed. PSYCH: Normal mood, normal affect. SKIN: Warm, dry, normal turgor, no rashes or lesions noted. LABS Laboratory Results - last 24 hr 06/19/17 06/20/17 06/20/17 15:00 07:00 07:00 WBC 9.7 RBC 3.78 Hgb 9.7 L Hct 29.7 L MCV 78.6 L MCH 25.5 L MCHC 32.5 RDW 16.2 H Plt Count 449 H MPV 7.8 Neutrophils % 72.1 Lymphocytes % 13.0 Monocytes % 6.5 Eosinophils % 7.9 H Basophils % 0.5 Sodium 126 L 133 L Potassium 4.0 3.9 Chloride 95 L 98 Carbon Dioxide 21 L 23 Anion Gap 10 12 BUN 20 H D 25 H D Creatinine 1.0 D 1.0 Random Glucose 165 H D 104 D Calcium 8.5 8.7 Phosphorus 3.9 Magnesium 1.9 Microbiology 06/15/17 13:45 Blood - Peripheral Venous Blood Culture - Preliminary NO GROWTH OBTAINED AFTER 72 HOURS, INCUBATION TO CONTINUE FOR 2 DAYS. 06/15/17 13:30 Blood - Peripheral Venous Blood Culture - Preliminary NO GROWTH OBTAINED AFTER 72 HOURS, INCUBATION TO CONTINUE FOR 2 DAYS. 06/15/17 13:30 Urine - Urine - Catheterized Urine Culture - Final NO GROWTH OBTAINED 06/15/17 14:25 Urine For Antigen Detection Legionella Antigen - Final, negative 06/15/17 14:25 Urine For Antigen Detection Streptococcus pneumoniae Antigen (M - Final, negative 06/15/17 13:23 Nasopharyngeal Swab Influenza Types A,B Antigen (EROS) - Final , negative 06/15/17 13:23 Nasopharyngeal Swab - Final IMAGING chest xray (06/16/17) reviewed notable for right lower PNA chest xray (06/17/17) little change to right lower lobe pna chest xray (06/19/17) improvement to right lower lobe infilitrate, small left pleural effusion HOSPITAL COURSE: * community acquired PNA, patient is now afebrile with no leukocytosis, treated with rocephin and zithromax (06/16- 06/20/17) eocouraged incentive spirometer and patient was started on q6h duonebs. pre and post oxygen, spo2 98% after flat surface walking * chronic diastolic chf, lasix was held for the first three days of admission due to sepsis, lasix was restarted on 06/18/17, patient is euvolemic upon exam. * blood pressure remained at goal with lisnopril and norvasc and b/p remained at goa. * microxytic anemia, hgb 9.7, baseline 11.7, no active bleeding noted, stool guiac negative, iron studies noted, start iron supplements, anemia is likely secondary to anemia of chronic disease. * hyponatremia, secondary to dehydration, seurm sodium 133 PLAN - discharge home with VNS, lengthy conversation with sonMo, patient has 6 hours of private duty nurse's aide at home, vns was established by social worker masters prior to discharge - ceftin for 7 days - strict folwow up with pcp within 1 week Date of Admission:06/15/17 Date of Discharge: 06/20/17 Minutes to complete discharge: 45 Discharge Summary Reason For Visit: COMMUNITY ACQUIRED PNEUMONIA Current Active Problems Community acquired pneumonia (Acute) DVT prophylaxis (Acute) Dementia (Acute) HTN (hypertension) (Acute) Condition: Stable - Instructions Diet, Activity, Other Instructions: you were admitted to the hospital for a right lower lobe pneumonia resume regular diet continue taking antibiotics as prescribed continue taking all medications as prescribed take bacid daily continue albuterol nebulizers every hours as needed for shortness of breath please follow with Dr Montgomery within 1 week if any new or persistent symptoms develop please return to the emergency department Referrals: Breann Montgomery [Primary Care Provider] - Disposition: HOME - Home Medications Comprehensive Discharge Medication List: Ambulatory Orders Donepezil HCl [Aricept] 10 mg PO DAILY #30 tablet 04/02/15 Furosemide [Lasix -] 20 mg PO DAILY #30 tablet 04/03/15 Amlodipine Besylate 5 mg PO DAILY 06/15/17 Lisinopril [Prinivil] 10 mg PO DAILY 06/15/17 - Discharge [facility] No
== END 2017-06-20 13:00 | disposition home or self-care (01) | DRG 871 ==
LOC: FER 13:00 → FM/S 16:23
PROVIDERS: ADMIT Internal Medicine; ATTEND Nurse Practitioner Family
DX: A41.9 Sepsis, unspecified organism (principal); J18.9 Pneumonia, unspecified organism; E87.1 Hypo-osmolality and hyponatremia; I50.32 Chronic diastolic (congestive) heart failure; F03.90 Unspecified dementia, unspecified severity, without behavioral disturbance, psychotic disturbance, mood disturbance, and anxiety; I11.0 Hypertensive heart disease with heart failure; D50.9 Iron deficiency anemia, unspecified
CPT/HCPCS: 36415; 71010-TC; 71020-TC; 80048; 80053; 81003; 81015; 82272; 82728; 83540; 83550; 83605; 83735; 84100; 85025; 85044; 87040; 87086; 87804; 87899; 93005; 94010; 94640; 94761; 97116-GP; 97161-GP; 99285-25; J1644

== ENCOUNTER 2017-11-12 12:10 | Emergency (ER) | payer BC, OTHER ==
--- NOTE | 2017-11-12 12:18 | PDOC ---
History of Present Illness - General Chief Complaint: Diarrhea Stated Complaint: DIARRHEA YESTERDAY NOW BLOOD IN STOOL Time Seen by Provider: 11/12/17 12:17 - History of Present Illness Initial Comments: 11/12/17 16:01 Chief complaint: Brought in by her son for rectal bleeding History of present illness: The patient has no complaint, denies any pain, abdominal, rectal, or otherwise. She has severe dementia, however, and her son reports that she has had diarrhea with bloody stools since last night, at least 5 or 6 episodes. Review of systems: Entirely negative for the patient. When reviewed with the son , he denies that the patient has experienced any abdominal pain, rectal pain, lightheadedness, dizziness, chest pain, shortness of breath, unsteadiness of gait, or other focal neurologic symptoms. Past medical history: Severe Alzheimer's dementia, mild high blood pressure controlled with medication. 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 No history of tobacco alcohol or nonprescription drugs Family history: Reviewed with the son, noncontributory Physical exam: Patient is confused but cheerful and cooperative in no acute distress denying any symptoms whatsoever Afebrile, vital signs normal Head atraumatic. PERRLA, fundi benign, ENT clear Neck without tenderness or deformity, full range of motion without pain. No bruits masses or nodes Lungs clear to P&A. No chest wall or rib cage tenderness or deformity CV S1 and S2 distant without murmur rub or gallop pulses full and symmetric no JVD or edema no bruits regular Abdomen nondistended, bowel sounds normal. Soft without mass tenderness organomegaly. No CVAT Rectal exam: No hemorrhoids, other masses, tenderness on exam. No stool is present in the ampulla. There is light brown stool at the fingertip, with a small amount of watery red fluid. Impression: Rectal bleed, probably minor, no sign of significant blood loss. This may be due to a diverticular bleed, since the patient has had diverticulitis in the distant past. Plan: CBC and chemistries, if stable, further evaluation by heating operators engineer, consider colonoscopy. Past History - Past Medical History Allergies/Adverse Reactions: Allergies Allergy/AdvReac Type Severity Reaction Status Date / Time No Known Allergies Allergy Verified 11/12/17 12:12 Home Medications: Ambulatory Orders Donepezil HCl [Aricept] 10 mg PO DAILY #30 tablet 04/02/15 Amlodipine Besylate 5 mg PO DAILY 06/15/17 Lisinopril [Prinivil] 10 mg PO DAILY 06/15/17 COPD: No Dementia: Yes GI Disorders: Yes (diverticulitis) HTN: Yes - Suicide/Smoking/Psychosocial Hx Smoking History: Never smoked Have you smoked in the past 12 months: No Hx Alcohol Use: No Drug/Substance Use Hx: No Substance Use Type: None Hx Substance Use Treatment: No ED Treatment Course - LABORATORY CBC & Chemistry Diagram: 11/12/17 12:50 11/12/17 12:50 Medical Decision Making - Medical Decision Making 11/12/17 16:07 H&H are stable, 11 and 33, as opposed to 10 and 30 on prior visits. Remainder of labs without significant abnormalities. No orthostatic changes. Patient is discharged with her family, with instructions to return to the ER if bleeding becomes more heavy or other signs of blood loss occur, including lightheadedness, dizziness, chest pain, shortness of breath, abdominal pain. Otherwise follow-up with primary physician and heating operators engineer. Consider colonoscopy. Fully ambulatory and in no significant distress upon discharge with her family to follow-up as directed *DC/Admit/Observation/Transfer Diagnosis at time of Disposition: Rectal bleeding - Discharge Dispostion Disposition: HOME Condition at time of disposition: Stable Admit: No - Referrals Referrals: Aristides Mg DO [Staff Physician] - - Patient Instructions Printed Discharge Instructions: DI for Rectal Bleeding Additional Instructions: Light diet, mostly clear liquids, broth, or white rice Return to ER immediately if bleeding is more severe or if there are other associated symptoms, such as lightheadedness, dizziness, unsteadiness of gait, chest pain, shortness of breath, or abdominal pain. Otherwise see primary physician and heating operators engineer, discuss advisability of colonoscopy. - Post Discharge Activity
[2017-11-12 12:31] VITALS: TEMP 98.5; BMI 21.6
[2017-11-12 13:39] LABS: BASO % 1.7 % (0-2.0); EOS % 1.3 % (0-4.5); HEMATOCRIT 33.6 % (32.4-45.2); HEMOGLOBIN 11.4 GM/dl (10.7-15.3); LYMPH % 15.9 % (8-40); MCH 27.1 pg (25.7-33.7); MEAN CELL VOLUME 79.6 fl (80-96); MEAN PLT VOLUME 7.8 fl (7.5-11.1); MONO % 4.4 % (3.8-10.2); NEUT % 76.7 % (42.8-82.8); PLATELET COUNT 397 K/MM3 (134-434); RBC 4.22 M/mm3 (3.60-5.2); RDW 14.6 % (11.6-15.6); WHITE BLOOD COUNT 11.7 K/mm3 (4.0-10.8)
[2017-11-12 14:04] LABS: ALBUMIN 3.6 g/dl (3.5-5.0); ALK PHOS 76 U/L (32-92); ANION GAP 8 (8-16); BLOOD UREA NITROGEN 19 mg/dl (7-18); CALCIUM 9.3 mg/dl (8.4-10.2); CHLORIDE 101 mmol/L (98-107); CO2 24 mmol/L (22-28); GLUCOSE,RANDOM 87 mg/dl (74-106); SGOT/AST 19 U/L (10-42); SGPT/ALT 10 U/L (10-40); SODIUM 133 mmol/L (136-145); TOT PROT 7.1 g/dl (6.4-8.3)
[2017-11-12 14:12] LABS: BILIRUBIN,TOTAL < 0.5 mg/dl (0.2-1.0); CREATININE < 0.8 mg/dl (0.6-1.3)
[2017-11-12 15:19] VITALS: BP 148/82; PULSE 80
[2017-11-12 16:19] LABS: URINE APPEARANCE Clear; URINE BILIRUBIN Negative (NEGATIVE); URINE BLOOD Negative (NEGATIVE); URINE GLUCOSE (UA) Negative (NEGATIVE); URINE KETONE Negative (NEGATIVE); URINE NITRITE Negative (NEGATIVE); URINE UROBILINOGEN 0.2 (0.2-1.0)
[2017-11-12 16:27] LABS: URINE LEUK ESTERASE TRACE (NEGATIVE); URINE PROTEIN 1+ (NEGATIVE)
[2017-11-12 16:28] LABS: URINE COLOR YELLOW
[2017-11-12 19:57] LABS: EPI CELLS FEW /HPF; URINE BACTERIA FEW /hpf (NEGATIVE); URINE RBC 0-2 /hpf (0-3)
== END 2017-11-12 15:25 | disposition home or self-care (01) ==
LOC: FER 12:10
DX: K62.5 Hemorrhage of anus and rectum (principal); I10 Essential (primary) hypertension; G30.9 Alzheimer's disease, unspecified; F02.80 Dementia in other diseases classified elsewhere, unspecified severity, without behavioral disturbance, psychotic disturbance, mood disturbance, and anxiety
CPT/HCPCS: 36415; 80053; 81003; 81015; 82272; 85025; 99283-25

== ENCOUNTER 2018-02-13 10:38 | Emergency (ER) | payer BC, OTHER ==
[2018-02-13 10:50] VITALS: BP 118/60; PULSE 82; TEMP 98.3; BMI 27.1
--- NOTE | 2018-02-13 11:01 | PDOC ---
History of Present Illness - General Chief Complaint: Cold Symptoms Stated Complaint: COUGH FOR THREE WEEKS Time Seen by Provider: 02/13/18 10:54 History Source: Patient Exam Limitations: No Limitations - History of Present Illness Initial Comments: 02/13/18 11:09 88y F hx of htn, dementia, presents with cough x 2-3 weeks. Cough is proiductive of clear/whitish sputum, pt went to her PMD when it first started and had lab work and was started on augmentin. PT still has the cough so they came to the ED for evaluation. History primiarly taken from family due to the pts severe dementia. FAmily notes pt is eating well and acting like her usual self. There has been no fever/chlls, no change in her behavior, no duarte/sob or obvious pain or discomfort. no reent travel or known sick contacts no leg swelling no hemoptysis PMD: Dr. Wilson Past History - Past Medical History Allergies/Adverse Reactions: Allergies Allergy/AdvReac Type Severity Reaction Status Date / Time No Known Allergies Allergy Verified 11/12/17 12:12 Home Medications: Ambulatory Orders Donepezil HCl [Aricept] 10 mg PO DAILY #30 tablet 04/02/15 Amlodipine Besylate 5 mg PO DAILY 06/15/17 Lisinopril [Prinivil] 10 mg PO DAILY 06/15/17 Guaifenesin Dm [Robitussin Dm -] 10 ml PO Q8H PRN #1 bottle 02/13/18 COPD: No Dementia: Yes GI Disorders: Yes (diverticulitis) HTN: Yes Psychiatric Problems: Yes - Suicide/Smoking/Psychosocial Hx Smoking History: Never smoked Have you smoked in the past 12 months: No Information on smoking cessation initiated: No Hx Alcohol Use: No Drug/Substance Use Hx: No Substance Use Type: None Hx Substance Use Treatment: No Review of Systems - Review of Systems Able to Perform ROS?: No (limtied due to dementia) *Physical Exam - Vital Signs Last Vital Signs Temp Pulse Resp BP Pulse Ox 98.3 F 82 20 118/60 99 02/13/18 10:40 02/13/18 10:40 02/13/18 10:40 02/13/18 10:40 02/13/18 10:40 - Physical Exam Comments: 02/13/18 11:12 GENERAL: The patient is awake, alert, and fully oriented, Nontoxic - in no acute distress. HEAD: Normocephalic, atraumatic. EYES: extraocular movements intact, sclera anicteric, conjunctiva clear. ENT: Normal voice, Moist mucous membranes. NECK: Normal range of motion, supple LUNGS: Breath sounds equal, clear to auscultation bilaterally. No wheezes, no rhonchi, no rales. HEART: Regular rate and rhythm, normal S1 and S2 without murmur, rub or gallop. ABDOMEN: Soft, nontender, No guarding, no rebound. No CVA tenderness EXTREMITIES: Normal range of motion, no edema. neg homans, no calf tenderness NEUROLOGICAL: No facial assymetry, Normal speech, PSYCH: Normal mood, normal affect. SKIN: Warm, Dry, normal turgor, ED Treatment Course - RADIOLOGY Radiology Studies Ordered: Category Date Time Status CHEST PA & LAT [RAD] Stat Radiology 02/13/18 10:54 Ordered Medical Decision Making - Medical Decision Making 02/13/18 11:12 suspect possible viral cough as no systemic complaints will obtina xray due to persistence of cough vitals wnl if xray neg will dc with sypmtomatic relief and PMD fu 02/13/18 11:56 pts cxr neg for pna, but there are some ill defined deinsities in her lung will recommend outpatient fu and workup for possible further imaging results discussed with the pt and her family and will dc with outpatient fu I discussed the physical exam findings, ancillary test results and final diagnoses with the patient. I answered all of the patient's questions. The patient was satisfied with the care received and felt comfortable with the discharge plan and treatment plan. The patient will call their primary care physician within 24 hours to arrange follow-up and will return to the Emergency Department with any new, persistent or worsening symptoms. *DC/Admit/Observation/Transfer Diagnosis at time of Disposition: Cough, Abnormal chest xray - Discharge Dispostion Disposition: HOME Condition at time of disposition: Stable Decision to Admit order: No - Prescriptions Prescriptions: Guaifenesin Dm [Robitussin Dm -] 10 ml PO Q8H PRN #1 bottle PRN Reason: Cough - Referrals Referrals: Brianda Zaldivar MD [Staff Physician] - - Patient Instructions Printed Discharge Instructions: DI for Cough -- Adult Additional Instructions: Return to the emergency department immediately with ANY new, persistent or worsening symptoms. Your chest x-ray was noted for some abnormalities please discuss this with Dr. Zaldivar for possible further imaging. You MUST call and follow up with your doctor tomorrow for further evaluation of your symptoms. Results were discussed with you. Please make sure your doctor reviews the results of your emergency evaluation. Print Language: WELSH - Post Discharge Activity
== END 2018-02-13 12:07 | disposition home or self-care (01) ==
LOC: FER 10:38
DX: R05 Cough (principal); R94.31 Abnormal electrocardiogram [ECG] [EKG]; I10 Essential (primary) hypertension; F03.90 Unspecified dementia, unspecified severity, without behavioral disturbance, psychotic disturbance, mood disturbance, and anxiety; F99 Mental disorder, not otherwise specified
CPT/HCPCS: 71046-TC-FY; 99281-25

== ENCOUNTER 2018-11-29 15:59 | Emergency (ER) | payer BC, OTHER ==
[2018-11-29 16:23] VITALS: TEMP 97.4; BMI 29.2
[2018-11-29] MEDS ORDERED: ALBUTEROL SO4 2.5/IPRATROPIUM 0.5 INH SOL 3 ML VIAL.NEB. NEB ONE (16:24)
[2018-11-29] MEDS: ALBUTEROL SO4 2.5/IPRATROPIUM 0.5 INH SOL 3 ML VIAL.NEB. NEB SCH ×4 (16:28→17:19)
--- NOTE | 2018-11-29 16:45 | PDOC ---
Documentation entered by Chelsey Ly SCRIBE, acting as scribe for Madelyn Raygoza MD. Madelyn Raygoza MD: This documentation has been prepared by the Aliyah hidalgo Daisy, SCRIBE, under my direction and personally reviewed by me in its entirety. I confirm that the documentation accurately reflects all work, treatment, procedures, and medical decision making performed by me. History of Present Illness - General Chief Complaint: Respiratory Stated Complaint: COUGHING SHORT NESS OF BREATH WHEEZE History Source: Patient, Family (granddaughter) Exam Limitations: No Limitations - History of Present Illness Initial Comments: 11/29/18 16:06 88 YOF with h/o dementia, diastolic CHF, and HTN who presents to the ER for a persistent cough productive of white/clear sputum, wheezing and congestion for the past 6 days. Granddaughter at bedside states she was seen at an urgent care on 11/25/18, had a chest xray, prescribed a albuterol inhaler and told to follow up with the PCP later that week. Today is the patient's last day of her z-pack course, which she has been taking as prescribed. Granddaughter reports the patient may not have been taking the inhaler appropriately. Chest X-ray done at an urgent care on 11/25/18 shows enlarged heart vs. left sided pleural effusion vs consolidation vs. prominent interstitial markings vs mucus plugging. No recent changes in her medications. Denies recent travel, but admits the patient' s aid has been sick with a cough. Patient was previously admitted for pneumonia in 2014 and 2016. History is limited secondary to patient's dementia. otherwise no complaints of fever, letharg/AMS, SOB, chest pain, AP, n/v/d, urinary sx, leg pain or swelling or rash/skin changes. Allergies: NKDA Surgeries: None reported. PCP: Dr. Zaldivar Past History - Past Medical History Allergies/Adverse Reactions: Allergies Allergy/AdvReac Type Severity Reaction Status Date / Time No Known Allergies Allergy Verified 11/12/17 12:12 Home Medications: Ambulatory Orders Donepezil HCl [Aricept] 10 mg PO DAILY #30 tablet 04/02/15 Amlodipine Besylate 5 mg PO DAILY 06/15/17 Lisinopril [Prinivil] 10 mg PO DAILY 06/15/17 Guaifenesin Dm [Robitussin Dm -] 10 ml PO Q8H PRN #1 bottle 02/13/18 Albuterol 0.083% Nebulizer Lynne [Ventolin 0.083% Nebulizer Soln -] 1 neb NEB Q4H PRN #50 vial 11/29/18 Amox-Tr/K Cl [Augmentin - 875Mg Tablet] 1 tab PO BID 10 Days #20 tablet Nebulizer [Aeroeclipse II] 1 each MC ONCE #1 each 11/29/18 COPD: No Dementia: Yes GI Disorders: Yes (diverticulitis) HTN: Yes Psychiatric Problems: Yes - Suicide/Smoking/Psychosocial Hx Smoking History: Never smoked Have you smoked in the past 12 months: No Hx Alcohol Use: No Drug/Substance Use Hx: No Substance Use Type: None Hx Substance Use Treatment: No Review of Systems - Review of Systems Able to Perform ROS?: No (dementia) *Physical Exam - Vital Signs Last Vital Signs Temp Pulse Resp BP Pulse Ox 97.4 F L 104 H 20 139/77 97 11/29/18 16:01 11/29/18 16:01 11/29/18 16:01 11/29/18 16:01 11/29/18 16:01 - Physical Exam Comments: 11/29/18 16:51 Physical exam: General: Well appearing, awake and alert, NAD. (+) pleasantly demented. (+) oriented to person only. HEENT: NCAT, PERRL, EOMI, clear conjunctiva, anicteric, moist mucus membranes, clear oropharynx, no oral lesions.. Neck: neck supple, FROM Resp: (+) bilateral expiratory wheezing diffusely. normal even respirations, no respiratory distress. no crackles or rhonchi CVS: RRR, no murmurs, 2+ peripheral pulses throughout, no peripheral edema Abdomen: soft, NTND, no peritoneal signs. Back: nontender, normal inspection and ROM MSK: no edema, LUNA x4, ROM intact. No clubbing or cyanosis. normal bulk and tone. Neuro: alert, disoriented, pleasantly demented. Skin: warm and well perfused, cap refill <2 sec, normal color 11/29/18 17:08 ED Treatment Course - RADIOLOGY Radiology Studies Ordered: Category Date Time Status CHEST X-RAY PORTABLE* [RAD] Stat Radiology 11/29/18 16:18 Ordered Chest X-Ray Result: No Infiltrates Radiograph Interpretation: 11/29/18 16:47 Interpreted by ED Physician: CXR (2 view): no acute abnormality: no infiltrates , bones appear intact with degenerative changes and structures normal alignment , cardiac silhouette mildly enlarged c/w prior cardiomegaly. no free air under diaphragm, no pneumothorax. Medical Decision Making - Medical Decision Making 11/29/18 16:47 hpi as documented VS reviewed, no fever, nontoxic. no respiratory distress +wheezing noted, no hypoxia DDX bronchitis, viral syndrome, URI, pleurisy, pneumonia ed course: no acute events. given duonebs x3 for bronchitis/mucus plugging CXR repeated, unchanged, viewed the prior one from 11/25/18 on disc - unchanged. baseline with cardiomegaly and ?left effusion vs atelectasis will broaden coverage for typical in elderly patient with augmentin x 10 d course; reviewed prior notes, and this is appropriate for CAP typical coverage. supportive care, hydration, albuterol nebs vs inhaler use reviewed for wheezing/ cough, expectorant use and abx course that broadens coverage as pt appears well, nontoxic, baseline mental status eating and drinking well with family, w/o respiratory distress, no indication for admission or further imaging/labs. HR improved, repeat VS normal no fever. remains comfortable and well. Pt to be discharged in stable condition. Patient and family made aware of impression and plan, return precautions discussed (including but not limited to worsening pain or symptoms), fevers, or signs of infection, chest pain, respiratory distress, inability to tolerate oral intake, dehydration, syncope, or neurologic changes). Follow up with PMD in timely fashion as recommended, follow up information provided, take medications as instructed for duration of time. continue with supportive care, avoid triggers and precipitants. All questions answered to patient's satisfaction and expressed understanding and comfort with this. Patient does not suffer from an acute life-threatening medical condition at this time and is safe for outpatient follow-up. 11/29/18 17:08 *DC/Admit/Observation/Transfer Diagnosis at time of Disposition: Cough, Bronchitis - Discharge Dispostion Disposition: HOME Condition at time of disposition: Stable Decision to Admit order: No - Prescriptions Prescriptions: Albuterol 0.083% Nebulizer Lynne [Ventolin 0.083% Nebulizer Soln -] 1 neb NEB Q4H PRN #50 vial PRN Reason: Wheezing Amox-Tr/K Cl [Augmentin - 875Mg Tablet] 1 tab PO BID 10 Days #20 tablet Nebulizer [Aeroeclipse II] 1 each ONCE #1 each - Referrals Referrals: Brianda Zaldivar MD [Primary Care Provider] - - Patient Instructions Printed Discharge Instructions: DI for Pneumonia -- Adult, DI for Cough -- Adult, DI for Acute Bronchitis Additional Instructions: 1) Please follow-up with your primary care doctor in the next 1-2 days. Please call tomorrow for for any urgent issues. This could be viral bronchitis vs early pneumonia, we will give you different antibiotics x 10 days. 2) You were given a copy of the tests performed today. Please bring the results with you and review them with your primary care doctor. Your Chest Xray is unchanged, without acute pathology seen, 3) If you have any worsening of symptoms or any other concerns please return to the ED immediately. Return if worsening symptoms including fevers, headache, vomiting, visual or hearing disturbances, abdominal pain, chest pain, shortness of breath, syncope, dehydration, inability to take things by mouth/vomiting, altered mental status, or worsening concerning symptoms. 4) Please continue taking your home medications as directed. your medications on discharge include Augmentin twice a day x 10 days for possible pneumonia . side effects may include upset stomach, abdominal pain, vomiting, or diarrhea. do not drink alcohol with your medications. Stay well hydrated and rest adequately. Make an appointment with your primary doctor, call tomorrow. If you cannot follow-up with your primary care doctor please return to the ED salt water gargles and warm lemon tea is appropriate as well for soothing qualities for sore throat/cough. minimize spread of infection given contagious nature, and cover your mouth and wash your hands adequately with soap and water. Stay well hydrated and rest. Cool air - walk around outdoors in the evening. May also try hot shower steam. This can alleviate the congestion and cough. May use the albuterol inhaler or via the nebulizer machine with the mask every 4 -6 hours as needed for cough and breathing to clear up your airways. Return precautions include respiratory distress, difficulty breathing, cyanosis , chest pain, lethargy, confusion, dehydration, high fevers or pain. - Post Discharge Activity
[2018-11-29 17:10] VITALS: BP 135/72; PULSE 96
[2018-11-29] MEDS ORDERED: AMOX TR/POT CLAV 875MG/125MG TABLETS (FP) PO ONE (17:19)
[2018-11-29] MEDS ORDERED: AMOX TR/POT CLAV 875MG/125MG TABLETS (FP) ONE (17:21)
== END 2018-11-29 17:36 | disposition home or self-care (01) ==
LOC: FER 15:59
PROC: 3E0F7GC Introduction of Other Therapeutic Substance into Respiratory Tract, Via Natural or Artificial Opening (ICD-10-PCS; principal; 2018-11-29)
DX: J40 Bronchitis, not specified as acute or chronic (principal); R05 Cough; F99 Mental disorder, not otherwise specified; I10 Essential (primary) hypertension; F03.90 Unspecified dementia, unspecified severity, without behavioral disturbance, psychotic disturbance, mood disturbance, and anxiety
CPT/HCPCS: 71045-TC-FY; 94640; 99281-25

== ENCOUNTER 2019-01-21 07:11 | Emergency (ER) | payer BC ==
--- NOTE | 2019-01-21 07:30 | PDOC ---
Attending Attestation - Resident Resident Name: Aidee Sweeney - ED Attending Attestation I have performed the following: I have examined & evaluated the patient, The case was reviewed & discussed with the resident, I agree w/resident's findings & plan, Exceptions are as noted - HPI HPI: 88 yo F hx HTN, dementia, diverticulitis BIBEMS following witnessed cardiac arrest at home at 6:30 this morning. As per EMS, she had asystole on the monitor at 6:25, ACLS protocol was initiated. She received epi x4, calcium x1, and bicarb x1 en route. No ROSC as of yet. Patient was down for 35 min prior to arrival in ED. Arrives intubated, unresponsive. - Physicial Exam PE: GENERAL: Pale, unresponsive, intubated HEAD: No signs of trauma EYES: Pupils small, nonreactive ENT: Auricles normal inspection, nares patent. Dry mucosa. Intubated NECK: Normal ROM, supple, no lymphadenopathy, JVD, or masses LUNGS: Breath sounds equal, clear to auscultation bilaterally. HEART: No cardiac sounds. CPR in progress with Caesar machine ABDOMEN: Soft, absent bowel sounds. No masses EXTREMITIES: Normal range of motion, no edema. No clubbing or cyanosis. No cords, erythema NEUROLOGICAL: Unresponsive, unable to obtain exam SKIN: Warm, Dry, normal turgor, no rashes or lesions noted. - Medical Decision Making Pt arrives in asystole, ACLS protocol in progress for 35 minutes prior to arrival. Bedside sono shows no cardiac motion. An additional round of epi was given in ED with no response, patient remained in asystole. At this point she was in cardiac arrest for almost 40 minutes with no return of spontaneous circulation, likelihood of any meaningful recovery was minimal. Time of at 7:12am.
--- NOTE | 2019-01-21 07:38 | PDOC ---
History of Present Illness - General Chief Complaint: Cardiac Arrest Stated Complaint: CARDIAC ARREST Time Seen by Provider: 01/21/19 07:26 - History of Present Illness Initial Comments: 01/21/19 07:36 88 year old female with a PMH of HTN and Dementia BIBEMS witnessed cardiac arrest this morning around 6:30 a.m. EMS on scene @ 0635 reports asystole. Patient s/p Epinephrine x4, CaCl x1, NaHCO3 x1 in the field with 30+ minutes of CPR by time of presentation to our ED. Past History - Past Medical History Allergies/Adverse Reactions: Allergies Allergy/AdvReac Type Severity Reaction Status Date / Time No Known Allergies Allergy Verified 11/12/17 12:12 Home Medications: Ambulatory Orders Donepezil HCl [Aricept] 10 mg PO DAILY #30 tablet 04/02/15 Amlodipine Besylate 5 mg PO DAILY 06/15/17 Lisinopril [Prinivil] 10 mg PO DAILY 06/15/17 Guaifenesin Dm [Robitussin Dm -] 10 ml PO Q8H PRN #1 bottle 02/13/18 Albuterol 0.083% Nebulizer Lynne [Ventolin 0.083% Nebulizer Soln -] 1 neb NEB Q4H PRN #50 vial 11/29/18 Amox-Tr/K Cl [Augmentin - 875Mg Tablet] 1 tab PO BID 10 Days #20 tablet Nebulizer [Aeroeclipse II] 1 each MC ONCE #1 each 11/29/18 COPD: No Dementia: Yes GI Disorders: Yes (diverticulitis) HTN: Yes Psychiatric Problems: Yes - Suicide/Smoking/Psychosocial Hx Smoking History: Never smoked Have you smoked in the past 12 months: No Hx Alcohol Use: No Drug/Substance Use Hx: No Substance Use Type: None Hx Substance Use Treatment: No Review of Systems - Review of Systems Able to Perform ROS?: No (Unresponsive) *Physical Exam - Physical Exam Comments: 01/21/19 09:03 General: Intubated, unresponsive HEENT: non-reactive pupils, no external signs CV: no appreciable S1/S2 on ascultation, JASON Respiratory: CLTA B/L Abdomen: soft, no appreciable bowel sounds Medical Decision Making - Medical Decision Making 01/21/19 07:37 88 year old female s/p witnessed cardiac arrest S/p 35 minutes of CPR , Epinephrine x4, CaCl x1, NaHCO3 x1 PEA @ presentation Epinephrine x2 Pulse check, no cardiac activity on ultrasound Time of : 7:12 a.m. Family in ED. Medical interventions and futility of resuscitative efforts s/p 40+ minutes of total CPR time discussed with family. 01/21/19 10:35 Case d/w [facility] ExaminerRoe Case Number *DC/Admit/Observation/Transfer Diagnosis at time of Disposition: Cardiac arrest - Discharge Dispostion Disposition: - Referrals - Patient Instructions - Post Discharge Activity
[2019-01-21 10:10] VITALS: BP 0/0; BMI 26.4
== END 2019-01-21 10:32 | disposition expired ==
LOC: JER 07:11
PROC: 5A12012 Performance of Cardiac Output, Single, Manual (ICD-10-PCS; principal; 2019-01-21)
DX: I46.9 Cardiac arrest, cause unspecified (principal); I10 Essential (primary) hypertension; F03.90 Unspecified dementia, unspecified severity, without behavioral disturbance, psychotic disturbance, mood disturbance, and anxiety; F99 Mental disorder, not otherwise specified; K57.92 Diverticulitis of intestine, part unspecified, without perforation or abscess without bleeding
CPT/HCPCS: 99283-25